=== PATIENT | male | born 1950 | race Caucasian/White ===

== ENCOUNTER 2018-07-17 13:27 | Emergency (ER) | payer MEDICARE, OTHER ==
[~2018-07-17] VITALS: Ht 172.7 cm; Wt 82.2 kg
[2018-07-17 13:33] VITALS: BP 139/77
[2018-07-17] MEDS ORDERED: BACITRACIN ZINC OINT 500U/GM, 0.9 GM ONE (13:54)
[2018-07-17] MEDS ORDERED: BACITRACIN/POLYMIXIN B SULFATE OINT 14 GM TP ONE (14:30)
== END 2018-07-17 14:27 | disposition home or self-care (01) ==
LOC: ED 14:05
DX: S01.25XA Open bite of nose, initial encounter (principal); J34.0 Abscess, furuncle and carbuncle of nose; K21.9 Gastro-esophageal reflux disease without esophagitis; I10 Essential (primary) hypertension; E78.00 Pure hypercholesterolemia, unspecified; W55.01XA Bitten by cat, initial encounter; Y93.89 Activity, other specified; Y92.89 Other specified places as the place of occurrence of the external cause; Y99.8 Other external cause status
CPT/HCPCS: 99283

== ENCOUNTER 2018-08-24 06:52 | Emergency (ER) | payer MEDICARE ==
[~2018-08-24] VITALS: Ht 172.7 cm; Wt 80.0 kg
[2018-08-24 07:23] VITALS: BP 132/79
--- NOTE | 2018-08-24 07:44 | NUR ---
SOC CONSULT INITIAED
--- NOTE | 2018-08-24 07:51 | NUR ---
Report received from ESVIN Khan at 0655, patient changing into hospital gown at that time, shutters lowered, sitter ([place]) outside room at all times. patient endorses thoughts of self harm r/t financial setback in the last 24 hrs. patient is conversant, pleasant, AOx4, has provided urine sample, and is in no acute distress. Lab at bedside now.
[2018-08-24 08:03] LABS: MEAN CORPUSCULAR HEMOGLOBIN 29.8 pg (27.5-34.5); MEAN CORPUSCULAR HGB CONC 33.2 g/dL (33.2-36.2); MEAN CORPUSCULAR VOLUME 89.7 fL (81-97); MEAN PLATELET VOLUME 6.9 fL (7.4-10.4); PLATELET COUNT 492 x10^3/uL (130-400); RED BLOOD COUNT 4.25 x10^6/uL (4.38-5.82); RED CELL DISTRIBUTION WIDTH 13.7 % (9.4-14.8)
[2018-08-24 08:15] LABS: CHLORIDE 108 mmol/L (98-107)
[2018-08-24 08:20] LABS: AMPHETAMINE SCREEN, URINE Negative (Negative); BARBITURATE SCREEN, URINE Negative (Negative); BENZODIAZEPINE SCREEN, URINE Negative (Negative); CANNABINOID SCREEN, URINE Negative (Negative); COCAINE SCREEN, URINE Negative (Negative); METHADONE SCREEN, URINE Negative (Negative); OPIATE SCREEN, URINE Negative (Negative)
[2018-08-24 08:31] LABS: ALANINE AMINOTRANSFERASE 19 U/L (12-78); ALBUMIN 3.4 g/dL (3.4-5.0); ALKALINE PHOSPHATASE 87 U/L (45-117); ANION GAP 8 mmol/L (5-15); BILIRUBIN,TOTAL 0.2 mg/dL (0.2-1.0); CREATININE 1.01 mg/dL (0.7-1.3); SALICYLATE LEVEL < 1.7 mg/dL (2.8-20.0); TOTAL PROTEIN 6.7 g/dL (6.4-8.2)
[2018-08-24 08:32] LABS: ACETAMINOPHEN < 2 mcg/mL (10-30)
[2018-08-24] MEDS ORDERED: ACETAMINOPHEN 325 MG TABLET PO PRN (09:00)
[2018-08-24] MEDS ORDERED: DOCUSATE 100 MG CAPSULE PO PRN (09:00)
[2018-08-24] MEDS ORDERED: BISACODYL 10 MG SUPP PR PRN (09:00)
[2018-08-24] MEDS ORDERED: LORazepam 1MG TABLET PO PRN (09:00)
[2018-08-24] MEDS ORDERED: POLYETHYLENE GLYCOL 17 GM PACKET PO PRN (09:00)
[2018-08-24] MEDS ORDERED: ONDANSETRON ODT 4 MG PO PRN (09:00)
[2018-08-24 09:05] LABS: BASOPHILS # (AUTO) 0.06 x10^3/uL (0-0.1); BASOPHILS % (AUTO) 1 % (0-1); EOSINOPHILS # (AUTO) 0.45 x10^3/uL (0-0.4); EOSINOPHILS % (AUTO) 4 % (1-7); LYMPHOCYTES % (AUTO) 16 % (22-44); MD SCAN; MONOCYTES # (AUTO) 0.56 x10^3/uL (0.2-0.8); MONOCYTES % (AUTO) 5 % (2-9); NEUTROPHILS # (AUTO) 7.86 x10^3/uL (1.8-6.8); NEUTROPHILS % (AUTO) 74 % (42-75)
--- NOTE | 2018-08-24 10:07 | NUR ---
RN from 3E in room, assesing for admission to that unit. patient is safe in [facility], no distress, telepsych consult completed, patient has been given a meal tray, no additional needs at this time.
--- NOTE | 2018-08-24 11:19 | NUR ---
[facility] RECEIEVED PACKET, UNDER REVIEW PER MATTIE.
--- NOTE | 2018-08-24 12:02 | NUR ---
PT ACCEPTED BY Kristine. AMBAR ARGUELLES WILL ALSO ACCEPT IF NECESSARY.
[2018-08-24] MEDS ORDERED: ESOM40CA PO (12:55)
[2018-08-24] MEDS ORDERED: ENAL10TA PO (12:55)
[2018-08-24] MEDS ORDERED: ATOR20TA37 PO (12:55)
[2018-08-24] MEDS ORDERED: TRAZ50TA66 PO (12:55)
[2018-08-24] MEDS ORDERED: ALLO300T PO (12:55)
[2018-08-25 04:56] LABS: BASOPHILS # (AUTO) 0.03 x10^3/uL (0-0.1); BASOPHILS % (AUTO) 0 % (0-1); EOSINOPHILS # (AUTO) 0.54 x10^3/uL (0-0.4); EOSINOPHILS % (AUTO) 5 % (1-7); LYMPHOCYTES # (AUTO) 3.04 x10^3/uL (1-3.4); LYMPHOCYTES % (AUTO) 28 % (22-44); MD NO; MEAN CORPUSCULAR HEMOGLOBIN 30.5 pg (27.5-34.5); MEAN CORPUSCULAR HGB CONC 33.5 g/dL (33.2-36.2); MEAN CORPUSCULAR VOLUME 91.1 fL (81-97); MEAN PLATELET VOLUME 6.8 fL (7.4-10.4); MONOCYTES # (AUTO) 0.57 x10^3/uL (0.2-0.8); MONOCYTES % (AUTO) 5 % (2-9); NEUTROPHILS # (AUTO) 6.73 x10^3/uL (1.8-6.8); NEUTROPHILS % (AUTO) 62 % (42-75); PLATELET COUNT 475 x10^3/uL (130-400); RED CELL DISTRIBUTION WIDTH 14.4 % (9.4-14.8)
== END 2018-08-25 00:05 ==
LOC: ED 07:19 → UNDOADMOB 08:37 → EDIP 08:37 → ED 08-25 00:05
DX: F31.4 Bipolar disorder, current episode depressed, severe, without psychotic features (principal); I10 Essential (primary) hypertension; K21.9 Gastro-esophageal reflux disease without esophagitis; M10.9 Gout, unspecified
CPT/HCPCS: 36415; 80053; 80307; 80329; 84443; 85025; 93005; 99284; G0480

== ENCOUNTER 2018-08-24 11:38 | Inpatient (IN) | payer MEDICARE ==
[~2018-08-24] VITALS: Ht 172.7 cm; Wt 63.8 kg
[2018-08-24] MEDS ORDERED: ATOR20TA37 PO (12:55)
[2018-08-24] MEDS ORDERED: TRAZ50TA66 PO (12:55)
[2018-08-24] MEDS ORDERED: ALLO300T PO (12:55)
[2018-08-24] MEDS ORDERED: ENAL10TA PO (12:55)
[2018-08-24] MEDS ORDERED: ESOM40CA PO (12:55)
[2018-08-24 13:47] VITALS: BP 157/94
[2018-08-24 15:04] LABS: FREE T4 (FREE THYROXINE) 0.97 ng/dL (0.76-1.46); LDL/HDL RATIO 2.3 (0.5-3.0)
[2018-08-24 19:48] VITALS: BP 142/69
[2018-08-24] MEDS: TRAZODONE 50MG TABLET PO SCH (20:49)
[2018-08-24] MEDS: ATORVASTATIN 20 MG TABLET PO SCH (20:49)
[2018-08-24] MEDS: OXCARBAZEPINE 150 MG TABLET PO SCH (20:49)
[2018-08-24] MEDS: ACETAMINOPHEN 325 MG TABLET PO PRN (20:53)
[2018-08-24] MEDS ORDERED: DOCUSATE 100 MG CAPSULE PO PRN (21:00)
[2018-08-24 22:53] LABS: MICROSCOPIC NOT IND
[2018-08-24 23:24] LABS: CULTURE INDICATED? NO
[2018-08-25] MEDS: PANTOPROZOLE 40MG TABLET PO SCH (07:54)
[2018-08-25 08:39] VITALS: BP 150/82
[2018-08-25] MEDS ORDERED: TRAZODONE 50MG TABLET PO SCH (09:00)
[2018-08-25] MEDS: BUPROPION SR 150 MG TABLET PO SCH (09:06)
[2018-08-25] MEDS: ALLOPURINOL 300 MG TABLET PO SCH (09:06)
[2018-08-25] MEDS: ENALAPRIL 10 MG TABLET PO SCH (12:01)
[2018-08-25 19:58] VITALS: BP 117/67
[2018-08-25] MEDS: TRAZODONE 50MG TABLET PO SCH (20:24)
[2018-08-25] MEDS: ATORVASTATIN 20 MG TABLET PO SCH (20:25)
[2018-08-25] MEDS: ACETAMINOPHEN 325 MG TABLET PO PRN (20:25)
[2018-08-25] MEDS: OXCARBAZEPINE 150 MG TABLET PO SCH (20:25)
[2018-08-26] MEDS: PANTOPROZOLE 40MG TABLET PO SCH (07:17)
[2018-08-26 07:20] VITALS: BP 148/83
[2018-08-26] MEDS: BUPROPION SR 150 MG TABLET PO SCH (08:41)
[2018-08-26] MEDS: ALLOPURINOL 300 MG TABLET PO SCH (08:41)
[2018-08-26] MEDS: ENALAPRIL 10 MG TABLET PO SCH (08:41)
[2018-08-26 19:42] VITALS: BP 135/73
[2018-08-26] MEDS: OXCARBAZEPINE 150 MG TABLET PO SCH (20:09)
[2018-08-26] MEDS: TRAZODONE 50MG TABLET PO SCH (20:09)
[2018-08-26] MEDS: ATORVASTATIN 20 MG TABLET PO SCH (20:09)
[2018-08-27] MEDS: PANTOPROZOLE 40MG TABLET PO SCH (05:36)
[2018-08-27 07:35] VITALS: BP 116/70
[2018-08-27] MEDS ORDERED: LOPERAMIDE 2 MG CAPSULE PO PRN (08:30)
[2018-08-27] MEDS: ENALAPRIL 10 MG TABLET PO SCH (08:36)
[2018-08-27] MEDS: BUPROPION SR 150 MG TABLET PO SCH (08:36)
[2018-08-27] MEDS: ALLOPURINOL 300 MG TABLET PO SCH (08:37)
[2018-08-27 11:06] LABS: CLOSTRIDIUM DIFFICILE ANTIGEN NEGATIVE; CLOSTRIDIUM DIFFICILE TOXIN NEGATIVE (Negative)
[2018-08-27 19:24] VITALS: BP 126/79
[2018-08-27] MEDS: TRAZODONE 50MG TABLET PO SCH (20:19)
[2018-08-27] MEDS: ATORVASTATIN 20 MG TABLET PO SCH (20:19)
[2018-08-27] MEDS: OXCARBAZEPINE 150 MG TABLET PO SCH (20:19)
[2018-08-28] MEDS: PANTOPROZOLE 40MG TABLET PO SCH (06:00)
[2018-08-28 07:30] VITALS: BP 111/68
[2018-08-28] MEDS: ALLOPURINOL 300 MG TABLET PO SCH (08:36)
[2018-08-28] MEDS: ACETAMINOPHEN 325 MG TABLET PO PRN (08:36)
[2018-08-28] MEDS: BUPROPION SR 150 MG TABLET PO SCH (08:36)
[2018-08-28] MEDS: ENALAPRIL 10 MG TABLET PO SCH (08:36)
[2018-08-28 19:32] VITALS: BP 108/67
[2018-08-28] MEDS: TRAZODONE 50MG TABLET PO SCH (20:27)
[2018-08-28] MEDS: ATORVASTATIN 20 MG TABLET PO SCH (20:27)
[2018-08-28] MEDS: OXCARBAZEPINE 150 MG TABLET PO SCH (20:27)
[2018-08-29] MEDS: PANTOPROZOLE 40MG TABLET PO SCH (06:00)
[2018-08-29 07:48] VITALS: BP 118/78
[2018-08-29] MEDS: ENALAPRIL 10 MG TABLET PO SCH (08:58)
[2018-08-29] MEDS: BUPROPION SR 150 MG TABLET PO SCH (08:58)
[2018-08-29] MEDS: ALLOPURINOL 300 MG TABLET PO SCH (08:58)
[2018-08-29 19:44] VITALS: BP 124/78
[2018-08-29] MEDS: TRAZODONE 50MG TABLET PO SCH (20:17)
[2018-08-29] MEDS: ATORVASTATIN 20 MG TABLET PO SCH (20:17)
[2018-08-29] MEDS: OXCARBAZEPINE 150 MG TABLET PO SCH (20:17)
[2018-08-30] MEDS: PANTOPROZOLE 40MG TABLET PO SCH (06:09)
[2018-08-30 07:52] VITALS: BP 113/66
[2018-08-30] MEDS: BUPROPION SR 150 MG TABLET PO SCH (09:35)
[2018-08-30] MEDS: ALLOPURINOL 300 MG TABLET PO SCH (09:35)
[2018-08-30] MEDS: ENALAPRIL 10 MG TABLET PO SCH (09:36)
[2018-08-30] MEDS: ACETAMINOPHEN 325 MG TABLET PO PRN ×2 (09:38→20:00)
[2018-08-30 19:57] VITALS: BP 110/66
[2018-08-30] MEDS: ATORVASTATIN 20 MG TABLET PO SCH (20:00)
[2018-08-30] MEDS: TRAZODONE 50MG TABLET PO SCH (20:00)
[2018-08-30] MEDS: OXCARBAZEPINE 150 MG TABLET PO SCH (20:00)
[2018-08-31] MEDS: PANTOPROZOLE 40MG TABLET PO SCH (06:07)
[2018-08-31 07:28] VITALS: BP 109/69
[2018-08-31] MEDS: BUPROPION SR 150 MG TABLET PO SCH (08:19)
[2018-08-31] MEDS: ALLOPURINOL 300 MG TABLET PO SCH (08:19)
[2018-08-31] MEDS: ACETAMINOPHEN 325 MG TABLET PO PRN (08:19)
[2018-08-31] MEDS: ENALAPRIL 10 MG TABLET PO SCH (08:19)
[2018-08-31 19:25] VITALS: BP 101/61
[2018-08-31] MEDS: OXCARBAZEPINE 150 MG TABLET PO SCH (20:30)
[2018-08-31] MEDS: TRAZODONE 50MG TABLET PO SCH (20:30)
[2018-08-31] MEDS: ATORVASTATIN 20 MG TABLET PO SCH (20:30)
[2018-09-01] MEDS: PANTOPROZOLE 40MG TABLET PO SCH (07:08)
[2018-09-01 08:00] VITALS: BP 118/68
[2018-09-01] MEDS: BUPROPION SR 150 MG TABLET PO SCH (08:18)
[2018-09-01] MEDS: ALLOPURINOL 300 MG TABLET PO SCH (08:18)
[2018-09-01] MEDS: ENALAPRIL 10 MG TABLET PO SCH (08:18)
[2018-09-01 19:51] VITALS: BP 101/63
[2018-09-01] MEDS ORDERED: NAPROXEN 250 MG TABLET PO PRN (20:00)
[2018-09-01] MEDS: ATORVASTATIN 20 MG TABLET PO SCH (20:03)
[2018-09-01] MEDS: TRAZODONE 50MG TABLET PO SCH (20:03)
[2018-09-01] MEDS: OXCARBAZEPINE 150 MG TABLET PO SCH (20:03)
[2018-09-02 07:19] VITALS: BP 94/52
[2018-09-02] MEDS: ALLOPURINOL 300 MG TABLET PO SCH (07:57)
[2018-09-02] MEDS: NAPROXEN 500 MG TABLET PO PRN ×2 (07:57→17:50)
[2018-09-02] MEDS: BUPROPION SR 150 MG TABLET PO SCH (07:57)
[2018-09-02] MEDS: PANTOPROZOLE 40MG TABLET PO SCH (07:57)
[2018-09-02 07:58] VITALS: BP 129/70
[2018-09-02] MEDS: ENALAPRIL 10 MG TABLET PO SCH (08:02)
[2018-09-02] MEDS ORDERED: DULOXETINE 30 MG CAPSULE.DR ONE (08:21)
[2018-09-02] MEDS: ATORVASTATIN 20 MG TABLET PO SCH (20:08)
[2018-09-02] MEDS: TRAZODONE 50MG TABLET PO SCH (20:08)
[2018-09-02] MEDS: OXCARBAZEPINE 150 MG TABLET PO SCH (20:09)
[2018-09-02 20:18] VITALS: BP 109/63
[2018-09-03] MEDS: NAPROXEN 500 MG TABLET PO PRN ×2 (05:59→17:56)
[2018-09-03] MEDS: PANTOPROZOLE 40MG TABLET PO SCH (05:59)
[2018-09-03 07:26] VITALS: BP 115/74
[2018-09-03] MEDS: ALLOPURINOL 300 MG TABLET PO SCH (08:16)
[2018-09-03] MEDS: BUPROPION SR 150 MG TABLET PO SCH (08:16)
[2018-09-03] MEDS: ENALAPRIL 10 MG TABLET PO SCH (08:16)
[2018-09-03 19:20] VITALS: BP 112/73
[2018-09-03] MEDS: TRAZODONE 50MG TABLET PO SCH (20:20)
[2018-09-03] MEDS: ATORVASTATIN 20 MG TABLET PO SCH (20:20)
[2018-09-03] MEDS: OXCARBAZEPINE 150 MG TABLET PO SCH (20:21)
[2018-09-04] MEDS: NAPROXEN 500 MG TABLET PO PRN ×2 (05:54→18:18)
[2018-09-04] MEDS: PANTOPROZOLE 40MG TABLET PO SCH (05:54)
[2018-09-04 07:38] VITALS: BP 109/70
[2018-09-04] MEDS: ENALAPRIL 10 MG TABLET PO SCH (08:28)
[2018-09-04] MEDS: ALLOPURINOL 300 MG TABLET PO SCH (08:28)
[2018-09-04] MEDS: BUPROPION SR 150 MG TABLET PO SCH (08:28)
[2018-09-04 19:10] VITALS: BP 111/65
[2018-09-04] MEDS: OXCARBAZEPINE 150 MG TABLET PO SCH (20:27)
[2018-09-04] MEDS: TRAZODONE 50MG TABLET PO SCH (20:27)
[2018-09-04] MEDS: ATORVASTATIN 20 MG TABLET PO SCH (20:27)
[2018-09-05] MEDS: PANTOPROZOLE 40MG TABLET PO SCH (05:58)
[2018-09-05] MEDS: NAPROXEN 500 MG TABLET PO PRN ×2 (06:02→17:17)
[2018-09-05 07:30] VITALS: BP 131/77
[2018-09-05] MEDS: BUPROPION SR 150 MG TABLET PO SCH (08:15)
[2018-09-05] MEDS: ENALAPRIL 10 MG TABLET PO SCH (08:15)
[2018-09-05] MEDS: ALLOPURINOL 300 MG TABLET PO SCH (08:15)
[2018-09-05 19:30] VITALS: BP 118/71
[2018-09-05] MEDS: ATORVASTATIN 20 MG TABLET PO SCH (20:33)
[2018-09-05] MEDS: OXCARBAZEPINE 150 MG TABLET PO SCH (20:33)
[2018-09-05] MEDS: TRAZODONE 50MG TABLET PO SCH (20:33)
[2018-09-06] MEDS: PANTOPROZOLE 40MG TABLET PO SCH (06:02)
[2018-09-06] MEDS: NAPROXEN 500 MG TABLET PO PRN (06:02)
[2018-09-06 07:47] VITALS: BP 162/81
[2018-09-06] MEDS: BUPROPION SR 150 MG TABLET PO SCH (08:16)
[2018-09-06] MEDS: ALLOPURINOL 300 MG TABLET PO SCH (08:16)
[2018-09-06] MEDS: ENALAPRIL 10 MG TABLET PO SCH (08:16)
[2018-09-06 12:20] VITALS: BP 149/80
== END 2018-09-06 15:30 | disposition home or self-care (01) | DRG 885 ==
LOC: 3E 13:43
PROVIDERS: ADMIT Psychiatry & Neurology Psychosomatic Medicine; ATTEND Psychiatry & Neurology Psychosomatic Medicine
DX: F31.30 Bipolar disorder, current episode depressed, mild or moderate severity, unspecified (principal); R45.851 Suicidal ideations; D72.829 Elevated white blood cell count, unspecified; D64.9 Anemia, unspecified; E78.5 Hyperlipidemia, unspecified; F17.290 Nicotine dependence, other tobacco product, uncomplicated; G47.00 Insomnia, unspecified; G89.29 Other chronic pain; I11.9 Hypertensive heart disease without heart failure; K21.9 Gastro-esophageal reflux disease without esophagitis; M10.9 Gout, unspecified; M19.90 Unspecified osteoarthritis, unspecified site; M54.30 Sciatica, unspecified side; N40.0 Benign prostatic hyperplasia without lower urinary tract symptoms; R73.9 Hyperglycemia, unspecified; Z59.9 Problem related to housing and economic circumstances, unspecified; Z79.899 Other long term (current) drug therapy
CPT/HCPCS: 36415; 71045; 80061; 81003; 82140; 82607; 84439; 86592; 87324; 92523-GN

== ENCOUNTER → 2018-10-05 | Outpatient (CLI) | payer MEDICARE, BC ==
[~2018-10-05] MED LIST: ALLO300T PO; ATOR20TA37 PO; ENAL10TA PO; ESOM40CA PO; TRAZ50TA66 PO
[2018-10-05 12:43] LABS: BASOPHILS # (AUTO) 0.02 x10^3/uL (0-0.1); BASOPHILS % (AUTO) 0 % (0-1); EOSINOPHILS # (AUTO) 0.22 x10^3/uL (0-0.4); EOSINOPHILS % (AUTO) 2 % (1-7); LYMPHOCYTES # (AUTO) 1.89 x10^3/uL (1-3.4); LYMPHOCYTES % (AUTO) 21 % (22-44); MD NO; MEAN CORPUSCULAR HGB CONC 32.3 g/dL (33.2-36.2); MEAN CORPUSCULAR VOLUME 89.9 fL (81-97); MEAN PLATELET VOLUME 7.1 fL (7.4-10.4); MONOCYTES # (AUTO) 0.19 x10^3/uL (0.2-0.8); MONOCYTES % (AUTO) 2 % (2-9); NEUTROPHILS # (AUTO) 6.67 x10^3/uL (1.8-6.8); NEUTROPHILS % (AUTO) 74 % (42-75); PLATELET COUNT 532 x10^3/uL (130-400); RED BLOOD COUNT 4.81 x10^6/uL (4.38-5.82); RED CELL DISTRIBUTION WIDTH 14.1 % (9.4-14.8)
[2018-10-05 13:12] LABS: ALBUMIN 4.1 g/dL (3.4-5.0); CALCIUM 10.3 mg/dL (8.5-10.1); CHLORIDE 106 mmol/L (98-107)
[2018-10-05 13:16] LABS: HEMOGLOBIN A1C 5.7 % (4.2-6.3)
[2018-10-05 13:42] LABS: ALANINE AMINOTRANSFERASE 24 U/L (12-78); ALKALINE PHOSPHATASE 86 U/L (45-117); ANION GAP 5 mmol/L (5-15); BILIRUBIN, DIRECT 0.2 mg/dL (0.1-0.2); BILIRUBIN,TOTAL 0.6 mg/dL (0.2-1.0); CHOL/HDL RATIO 3.2; CHOLESTEROL, TOTAL 142 mg/dL (140-239); CREATININE 1.12 mg/dL (0.7-1.3); FREE T4 (FREE THYROXINE) 1.08 ng/dL (0.76-1.46); HDL CHOL % 32 % (26-37); HDL CHOLESTEROL (DIRECT) 45 mg/dL (40-60); LDL CHOLESTEROL,CALCULATED 75 mg/dL (54-169); LDL/HDL RATIO 1.7 (0.5-3.0); TRIGLYCERIDES 111 mg/dL (50-200); VLDL CHOLESTEROL 22 mg/dL (0-25)
== END | disposition home or self-care (01) ==
LOC: CFH 08:29
PROVIDERS: ATTEND Nurse Practitioner Primary Care
DX: Z12.5 Encounter for screening for malignant neoplasm of prostate (principal); Z13.220 Encounter for screening for lipoid disorders; Z12.11 Encounter for screening for malignant neoplasm of colon; I10 Essential (primary) hypertension; E55.9 Vitamin D deficiency, unspecified; E78.2 Mixed hyperlipidemia; K21.9 Gastro-esophageal reflux disease without esophagitis; R53.83 Other fatigue; M10.9 Gout, unspecified; M54.32 Sciatica, left side; N32.81 Overactive bladder; G47.00 Insomnia, unspecified; N52.9 Male erectile dysfunction, unspecified; C44.91 Basal cell carcinoma of skin, unspecified; C44.321 Squamous cell carcinoma of skin of nose; G47.30 Sleep apnea, unspecified; Q85.00 Neurofibromatosis, unspecified; Z79.899 Other long term (current) drug therapy
CPT/HCPCS: 36415; 80053; 80061; 82248; 82306; 82607; 83036; 83735; 84207; 84425; 84439; 84443; 84481; 84550; 85025; G0103

== ENCOUNTER 2018-10-18 09:58 | Emergency (ER) | payer MEDICARE, BC ==
[~2018-10-18] VITALS: Ht 172.7 cm; Wt 78.0 kg
[2018-10-18 10:11] VITALS: BP 128/67
[2018-10-18] MEDS ORDERED: DIPH,PERTUSS(ACELL),TET VAC/PF 0.5 ML IM-VACC ONE ×2 (10:30→10:39)
[2018-10-18] MEDS ORDERED: LIDOCAINE 2%, 20ML SQ ONE (10:30)
[2018-10-18] MEDS ORDERED: LIDOCAINE 2% 100MG/5ML SYRINGE ONE (10:39)
[2018-10-18] MEDS ORDERED: BACITRACIN ZINC OINT 500U/GM, 0.9 GM ONE (11:54)
== END 2018-10-18 12:02 | disposition home or self-care (01) ==
LOC: ED 11:55
DX: L60.0 Ingrowing nail (principal); E78.00 Pure hypercholesterolemia, unspecified; I10 Essential (primary) hypertension; K21.9 Gastro-esophageal reflux disease without esophagitis; F31.9 Bipolar disorder, unspecified; F17.200 Nicotine dependence, unspecified, uncomplicated
CPT/HCPCS: 11730; 90471; 90715